=== PATIENT | male | born 1980 ===

== ENCOUNTER 2018-02-27 18:43 | Emergency (ER) | payer SELFPAY ==
--- NOTE | 2018-02-27 19:31 | UC ---
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--no known injury - History of Current Complaint Chief Complaint: UCLowerExtremity Stated Complaint: KNEE INJURY Time Seen by Provider: 02/27/18 19:24 Hx Obtained From: Patient Onset/Duration: Sudden Onset, Lasting Days - 1, Still Present Location Of Injury: left knee (infra patellar bursa area) Pain Intensity: 8 Pain Scale Used: 0-10 Numeric Character: Aching, Stiffness Aggravating Factor(s): Movement Alleviating Factor(s): Rest Associated Signs And Symptoms: Positive: Swelling, Redness Able to Bear Weight: Yes - Allergies/Home Medications Allergies/Adverse Reactions: Allergies Allergy/AdvReac Type Severity Reaction Status Date / Time No Known Allergies Allergy Verified 02/27/18 19:17 Home Medications: Home Medications Ibuprofen 400 mg PO Q8HR PRN 02/27/18 [History Confirmed 02/27/18] PMH/Surg Hx/FS Hx/Imm Hx Previously Healthy: Yes - Surgical History Surgical History: None - Family History Known Family History: Positive: None - Social History Occupation: Employed Full-time Lives: Dormitory/Roommates Alcohol Use: Occasionally Substance Use Type: None Smoking Status (MU): Never Smoked Tobacco Review of Systems All Other Systems Reviewed And Are Negative: Yes Constitutional: Positive: Chills Skin: Positive: Negative, Other - no open areas Eyes: Positive: Negative ENT: Positive: Negative Respiratory: Positive: Negative Cardiovascular: Positive: Negative Gastrointestinal: Positive: Negative Genitourinary: Positive: Negative Motor: Positive: Negative, Other - full rom does have pain with full extension and flex past 90 degrees Neurovascular: Positive: Negative Musculoskeletal: Positive: Arthralgia - right knee, Edema - right knee Neurological: Positive: Negative Psychological: Positive: Negative Is Patient Immunocompromised?: No Physical Exam Triage Information Reviewed: Yes Appearance: Well-Appearing, No Pain Distress, Well-Nourished Vital Signs: Initial Vital Signs Temp 98.7 F 02/27/18 19:13 Pulse 78 02/27/18 19:13 Resp 18 02/27/18 19:13 BP 139/82 02/27/18 19:13 Pulse Ox 98 02/27/18 19:13 Vital Signs Reviewed: Yes Eye Exam: Normal Eyes: Positive: Conjunctiva Clear ENT Exam: Normal ENT: Positive: Normal ENT inspection, Hearing grossly normal. Negative: Trismus , Muffled voice, Hoarse voice Dental Exam: Normal Neck exam: Normal Neck: Positive: Supple, Nontender, No Lymphadenopathy Respiratory Exam: Normal Respiratory: Positive: Chest non-tender, No respiratory distress, No accessory muscle use Cardiovascular Exam: Normal Cardiovascular: Positive: RRR, Pulses Normal, Brisk Capillary Refill Musculoskeletal Exam: Other Musculoskeletal: Positive: Strength Intact, ROM Intact, Edema @ - right knee Neurological Exam: Normal Neurological: Positive: Alert, Muscle Tone Normal Psychological Exam: Normal Skin Exam: Normal Knee Pain Course/Dx - Course Course Of Treatment: rest warm, elevation, pain med hydrocodone and ibuprofen Doxycycline if not resolved in 2-3 days or worsens in any way follow with cristy GARCIA - Differential Dx/Diagnosis Provider Diagnoses: bursitis right patellar bursa Discharge - Sign-Out/Discharge Documenting (check all that apply): Patient Departure All imaging exams completed and their final reports reviewed: No Studies - Discharge Plan Condition: Stable Disposition: HOME Prescriptions: DOXYcycline CAP(*) [DOXYcycline 100MG CAP(*)] 100 mg PO BID #20 cap Hydrocodone/Acetaminophen [Hydrocodone-Acetamin 5-325 mg] 1 each PO Q6HR #12 tablet MDD 4 Patient Education Materials: Knee Bursitis (ED), Warm Compress or Soak (ED) Forms: *Work Release Referrals: Hansel West MD [Medical Doctor] - 3 Days (or sooner if worsens) Additional Instructions: Rest and elevate----off work for 4 days - Billing Disposition and Condition Condition: STABLE Disposition: Home
[2018-02-27] MEDS ORDERED: DOXYcycline CAP(*) 100 MG PO ONE (19:38)
[2018-02-27] MEDS ORDERED: HYDROcodone/ACETAMIN 5-325 MG* 1 TAB PO ONE (19:39)
== END 2018-02-27 19:59 | disposition home or self-care (01) ==
LOC: UCEAST 18:43
DX: M70.41 Prepatellar bursitis, right knee (principal)
CPT/HCPCS: 99203; A9270-GY; G0463